=== PATIENT | female | born 1985 | race Caucasian/White ===

== ENCOUNTER 2017-03-07 16:52 | Emergency (ER) | payer SELFPAY ==
[2017-03-07 17:43] LABS: Bilirubin Moderate (Negative); Blood, Urine Negative (Negative); Clarity CLOUDY (Clear); Glucose, Urine (Dipstick) Negative (Negative); Leukocyte Trace (Negative); Nitrite Negative (Negative); Pregnancy Test - Urine (BHCG) Negative (Negative); Pregu Control Background? CLEAR/WHITE (CLR/WHITE); Pregu Control Bar Appear? YES (CONTROL BAR); Protein, Urine (Dipstick) Trace mg/dL (Neg-Trace); Specific Gravity 1.032 (1.002-1.036); Specific Gravity, Urine 1.035 (1.002-1.036); pH, Urine 5.5 (5.0-9.0)
[2017-03-07 17:45] LABS: Bacteria/HPF Rare-Few HPF (None Seen); Hyaline Casts/LPF 7-10 HYALINE CAST LPF (0-3 Hyaline); Pathc Cast-AUWi Flag 1.89 (0-2.49)
[2017-03-07 17:51] LABS: Amphetamine Not Detected (NotDetected); Barbiturates Screen Not Detected (NotDetected); Benzodiazepine Screen Not Detected (NotDetected); Cocaine Metabolite Screen Not Detected (NotDetected); Medtox Control Line Valid? VALID (VALID); Medtox Reader # READER 1; Methadone Not Detected (NotDetected); Methamphetamine Not Detected (NotDetected); Opiate Screen Not Detected (NotDetected); Oxycodone Screen Not Detected (NotDetected); Phencyclidine (PCP) Not Detected (NotDetected); THC/Cannabinoid Screen Detected (NotDetected); Tricyclic Screen Not Detected (NotDetected)
[2017-03-07 18:04] LABS: #Eosinphils 0.1 thou/uL (0.0-0.7); #Lymphocytes 1.8 thou/uL (1.20-3.40); #Monocytes 0.7 thou/uL (0.11-0.59); #Neutrophils 7.4 thou/uL (1.40-6.50); %Basophils 0.3 % (0.0-1.0); %Eosinophils 0.6 % (0.0-10.0); %Lymphocytes 18.2 % (21.0-51.0); %Monocytes 6.6 % (0.0-10.0); %Neutrophils 74.3 % (42.0-75.0); Hemoglobin 14.6 g/dL (12.0-16.0); Mean Corpuscular HGB CONC 33.4 g/dL (32.0-36.0); Mean Corpuscular Hemoglobin 30.6 pg (27.0-31.0); Mean Corpuscular Volume 91.7 fl (81.0-99.0); Mean Platelet Volume 7.7 fL (7.4-10.4); Platelet Count 275 thou/uL (130-400); RBC Distribution Width 11.4 % (11.5-14.5); Red Blood Cell (RBC) Count 4.77 mill/uL (4.20-5.40)
[2017-03-07 18:25] LABS: Acetaminophen Less than 6.0 mcg/mL (10.0-30.0); Alcohol Less than 10 mg/dL (Less than 10); Salicylate Less than 8.0 mg/dL (15.0-30.0)
[2017-03-07 18:35] LABS: ALT (SGPT) 20 U/L (8-55); AST (SGOT) 19 U/L (5-34); Albumin 4.5 g/dL (3.5-5.0); Alkaline Phosphatase 60 U/L (40-150); Anion Gap 16 mmol/L (10-20); BUN (Urea Nitrogen) 14 mg/dL (7.0-18.7); Bilirubin, Total 0.6 mg/dL (0.2-1.2); CK (CPK) 97 U/L (29-168); Calc. Creatinine Clearance 0 mL/min (70-130); Carbon Dioxide 23 mmol/L (22-29); Chloride 103 mmol/L (98-107); Estimated GFR-MDRD Greater than 90; Globulin 3.4 g/dL (2.4-3.5); Glucose 101 mg/dL (70-105); Protein, Total 7.9 g/dL (6.0-8.3); Sodium 138 mmol/L (136-145)
== END 2017-03-07 22:48 ==
LOC: ERS 16:52
DX: F32.9 Major depressive disorder, single episode, unspecified (principal); R45.851 Suicidal ideations; I10 Essential (primary) hypertension; F41.9 Anxiety disorder, unspecified; F17.210 Nicotine dependence, cigarettes, uncomplicated
CPT/HCPCS: 36415; 80053; 80306; 80307; 81003; 81015; 81025; 82550; 84443; 85025; 93005

== ENCOUNTER 2017-03-13 08:16 | Emergency (ER) | payer SELFPAY ==
[2017-03-13 09:12] LABS: #Eosinphils 0.1 thou/uL (0.0-0.7); #Lymphocytes 1.3 thou/uL (1.20-3.40); #Monocytes 0.7 thou/uL (0.11-0.59); #Neutrophils 7.8 thou/uL (1.40-6.50); %Basophils 0.3 % (0.0-1.0); %Eosinophils 0.6 % (0.0-10.0); %Lymphocytes 12.8 % (21.0-51.0); %Monocytes 7.5 % (0.0-10.0); %Neutrophils 78.7 % (42.0-75.0); Hemoglobin 14.5 g/dL (12.0-16.0); Mean Corpuscular HGB CONC 33.5 g/dL (32.0-36.0); Mean Corpuscular Volume 92.7 fl (81.0-99.0); Mean Platelet Volume 7.2 fL (7.4-10.4); Platelet Count 267 thou/uL (130-400); RBC Distribution Width 11.8 % (11.5-14.5); Red Blood Cell (RBC) Count 4.66 mill/uL (4.20-5.40); White Blood Cell (WBC) Count 9.9 thou/uL (4.8-10.8)
--- NOTE | 2017-03-13 09:28 | RAD ---
RIGHT SHOULDER 3 VIEWS: Date: 03/13/17 HISTORY: Pain. COMPARISON: None. FINDINGS: No acute fracture or malalignment. Acromioclavicular joints unremarkable. Right ribs unremarkable. IMPRESSION: No acute fracture or malalignment. POS: GREGORY
[2017-03-13 09:31] LABS: Bilirubin Small (Negative); Blood, Urine Negative (Negative); Clarity CLOUDY (Clear); Glucose, Urine (Dipstick) Negative (Negative); Leukocyte Negative (Negative); Nitrite Negative (Negative); Protein, Urine (Dipstick) Trace mg/dL (Neg-Trace); Specific Gravity, Urine 1.028 (1.002-1.036); Urobilinogen 0.2 mg/dL (0.2-1.0)
[2017-03-13 09:32] LABS: ALT (SGPT) 14 U/L (8-55); AST (SGOT) 10 U/L (5-34); Acetaminophen Less than 6.0 mcg/mL (10.0-30.0); Albumin 4.4 g/dL (3.5-5.0); Alcohol Less than 10 mg/dL (Less than 10); Alkaline Phosphatase 62 U/L (40-150); Anion Gap 12 mmol/L (10-20); BUN (Urea Nitrogen) 11 mg/dL (7.0-18.7); Bilirubin, Total 0.3 mg/dL (0.2-1.2); Calc. Creatinine Clearance 0 mL/min (70-130); Calcium 9.5 mg/dL (7.8-10.44); Carbon Dioxide 25 mmol/L (22-29); Chloride 106 mmol/L (98-107); Estimated GFR-MDRD Greater than 90; Globulin 3.1 g/dL (2.4-3.5); Glucose 92 mg/dL (70-105); Potassium 3.7 mmol/L (3.5-5.1); Protein, Total 7.5 g/dL (6.0-8.3); Salicylate Less than 8.0 mg/dL (15.0-30.0); Sodium 139 mmol/L (136-145)
[2017-03-13 09:33] LABS: Pregnancy Test - Urine (BHCG) Negative (Negative); Pregu Control Background? CLEAR/WHITE (CLR/WHITE); Pregu Control Bar Appear? YES (CONTROL BAR); Specific Gravity 1.028 (1.002-1.036)
[2017-03-13 09:40] LABS: Amphetamine Not Detected (NotDetected); Barbiturates Screen Not Detected (NotDetected); Benzodiazepine Screen Not Detected (NotDetected); Cocaine Metabolite Screen Not Detected (NotDetected); Medtox Control Line Valid? VALID (VALID); Medtox Reader # READER 1; Methadone Not Detected (NotDetected); Methamphetamine Not Detected (NotDetected); Opiate Screen Not Detected (NotDetected); Oxycodone Screen Not Detected (NotDetected); Phencyclidine (PCP) Not Detected (NotDetected); THC/Cannabinoid Screen Not Detected (NotDetected); Tricyclic Screen Not Detected (NotDetected)
== END 2017-03-13 11:03 | disposition home or self-care (01) ==
LOC: ERS 08:16
DX: S46.911A Strain of unspecified muscle, fascia and tendon at shoulder and upper arm level, right arm, initial encounter (principal); F32.9 Major depressive disorder, single episode, unspecified; I10 Essential (primary) hypertension; F17.200 Nicotine dependence, unspecified, uncomplicated; F41.9 Anxiety disorder, unspecified; F43.10 Post-traumatic stress disorder, unspecified; Y04.0XXA Assault by unarmed brawl or fight, initial encounter
CPT/HCPCS: 36415; 80053; 80306; 80307; 81003; 81025; 84443; 85025

== ENCOUNTER 2018-03-31 18:59 | Emergency (ER) | payer SELFPAY | END 2018-03-31 19:37 | disposition home or self-care (01) | LOC: ERS 18:59 | DX: R11.2 Nausea with vomiting, unspecified (principal); R19.7 Diarrhea, unspecified; F41.9 Anxiety disorder, unspecified; F32.9 Major depressive disorder, single episode, unspecified; F43.10 Post-traumatic stress disorder, unspecified; Z79.899 Other long term (current) drug therapy | CPT/HCPCS: 99283 ==

== ENCOUNTER 2018-05-01 14:28 | Emergency (ER) | payer SELFPAY | END 2018-05-01 18:55 | disposition home or self-care (01) | LOC: ERS 14:28 | DX: B34.9 Viral infection, unspecified (principal); F43.10 Post-traumatic stress disorder, unspecified; F41.9 Anxiety disorder, unspecified; F32.9 Major depressive disorder, single episode, unspecified; Z79.899 Other long term (current) drug therapy | CPT/HCPCS: 87081; 87430; 87804; 99283 ==

== ENCOUNTER 2019-01-09 00:54 | Emergency (ER) | payer OTHER, SELFPAY ==
[2019-01-09 01:56] LABS: Calcium Oxalate Crystals 1+ HPF (None Seen); Squamous Epithelial Greater than 50 HPF (0-3); WBC/HPF 21-50 HPF (0-3)
[2019-01-09 02:08] LABS: Bilirubin Negative (Negative); Blood, Urine Negative (Negative); Clarity Turbid (Clear); Glucose, Urine (Dipstick) Normal (Negative); Leukocyte 500 Leu/uL (Negative); Nitrite Negative (Negative); Protein, Urine (Dipstick) 50 mg/dL (Neg-Trace); Urobilinogen Normal mg/dL (Less than 2)
[2019-01-09 02:10] LABS: Bacteria/HPF 1+ HPF (None Seen)
[2019-01-09 02:11] LABS: #Eosinphils 0.2 thou/uL (0.0-0.7); #Lymphocytes 1.9 thou/uL (1.20-3.40); #Monocytes 0.5 thou/uL (0.11-0.59); #Neutrophils 5.6 thou/uL (1.40-6.50); %Basophils 0.2 % (0.0-1.0); %Lymphocytes 23.3 % (21.0-51.0); %Monocytes 6.3 % (0.0-10.0); %Neutrophils 68.1 % (42.0-75.0); Hemoglobin 13.3 g/dL (12.0-16.0); Mean Corpuscular HGB CONC 36.2 g/dL (32.0-36.0); Mean Corpuscular Hemoglobin 32.9 pg (27.0-31.0); Mean Corpuscular Volume 90.8 fL (78.0-98.0); Mean Platelet Volume 7.3 fL (7.4-10.4); Platelet Count 215 thou/uL (130-400); Red Blood Cell (RBC) Count 4.04 mill/uL (4.20-5.40); White Blood Cell (WBC) Count 8.2 thou/uL (4.8-10.8)
--- NOTE | 2019-01-09 09:13 | ULT ---
PRELIMINARY REPORT/[facility]/EMERGENCY AFTER HOURS PROCEDURE PROCEDURE INFORMATION: Exam: US , Limited and US , Transvaginal Exam date and time: 01/09/2019 1:58 AM Age: 33 years old Clinical history: Pain; Other: Cramping, spotting; Gestational age or lmp: 13-14wks; ; Prior surgery; Surgery date: 6+ months; Surgery type: TECHNIQUE: Imaging protocol: Real-time ultrasound of the maternal uterus with image documentation. Transvaginal imaging was used for better evaluation of the cervix. Exam focused on the clinical indication. COMPARISON: No relevant prior studies available. FINDINGS: GESTATION: There is a single, live intrauterine gestation. Presentation: Vertex. heart rate: 157 BPM. Placenta: Marginal previa. Posterior. Cervix: 4.1 cm and closed. Amniotic fluid volume: Qualitatively normal. Biometry: Composite sonographic age: 13 weeks 6 days. Estimated date of confinement: 07.11.2019. IMPRESSION: Single, live intrauterine gestation. Marginal placenta previa. Follow up advised. Cervix 4.1 cm and closed. Thank you for allowing us to participate in the care of your patient. Dictated and Authenticated by: Nataly Frazier MD 01/09/2019 3:26 AM Central Time ([place] & [place]) FINAL REPORT PELVIC ULTRASOUND: 01/09/2019 HISTORY: Cramping. Spotting. female with pain. COMPARISON: None. FINDINGS: I agree with the preliminary report. Cervical length is estimated at 4.2 cm. There is an intrauterine gestation present, the anatomy of wh ich is not well assessed secondary to the gestational age. heart rate is 157 beats per minute. There is a posterior placenta. The distal tip of the placenta is probably within 1 cm of the internal os, although evaluation is slightly limited. Amniotic fluid volume appears qualitatively normal. No evidence for placental abruption. BIOMETRY: BPD: 2.3 cm (13 weeks 6 days) HC: 9.2 cm (14 weeks 1 day) AC: 7.3 cm (13 weeks 6 days) FL: 1.1 cm (13 weeks 3 days) Average age based on ultrasound is 13 weeks 6 days. Estimated date of delivery is 07/11/2019. IMPRESSION: No definite acute findings. Possible low lying, marginal placenta previa, not optimally assessed at t his gestational age. Recommend follow-up pelvic ultrasound for further assessment of the placental tip as well as the feta l anatomy in approximately 6-8 weeks. CODE QA POS: GREGORY
== END 2019-01-09 03:04 | disposition home or self-care (01) ==
LOC: ERS 00:54
DX: O23.41 Unspecified infection of urinary tract in pregnancy, first trimester (principal); Z79.899 Other long term (current) drug therapy; Z3A.13 13 weeks gestation of pregnancy
CPT/HCPCS: 36415; 76856; 81003; 81015; 84702; 85025; 86900; 86901; 87086

== ENCOUNTER 2019-02-11 21:34 | Emergency (ER) | payer OTHER ==
[2019-02-11 22:42] LABS: Bilirubin Negative (Negative); Blood, Urine Negative (Negative); Clarity Turbid (Clear); Glucose, Urine (Dipstick) Normal (Negative); Leukocyte 25 Leu/uL (Negative); Mucous/LPF 2+ LPF (<2+); Nitrite Negative (Negative); Protein, Urine (Dipstick) 30 mg/dL (Neg-Trace); RBC/HPF 0-3 HPF (0-3); Urobilinogen Normal mg/dL (Less than 2)
[2019-02-11 22:49] LABS: Bacteria/HPF 3+ HPF (None Seen); Calcium Oxalate Crystals 1+ HPF (None Seen)
[2019-02-12 00:33] LABS: #Basophils 0.1 thou/uL (0.0-0.2); #Eosinphils 0.2 thou/uL (0.0-0.7); #Lymphocytes 1.9 thou/uL (1.20-3.40); #Monocytes 0.6 thou/uL (0.11-0.59); #Neutrophils 6.5 thou/uL (1.40-6.50); %Basophils 0.6 % (0.0-1.0); %Eosinophils 2.1 % (0.0-10.0); %Lymphocytes 20.6 % (21.0-51.0); %Neutrophils 70.8 % (42.0-75.0); Hemoglobin 13.2 g/dL (12.0-16.0); Mean Corpuscular HGB CONC 34.9 g/dL (32.0-36.0); Mean Corpuscular Hemoglobin 31.3 pg (27.0-31.0); Mean Corpuscular Volume 89.9 fL (78.0-98.0); Platelet Count 194 thou/uL (130-400); RBC Distribution Width 11.4 % (11.5-14.5); White Blood Cell (WBC) Count 9.2 thou/uL (4.8-10.8)
[2019-02-12 00:54] LABS: ALT (SGPT) 19 U/L (8-55); AST (SGOT) 17 U/L (5-34); Albumin 3.4 g/dL (3.5-5.0); Alkaline Phosphatase 48 U/L (40-110); Anion Gap 10 mmol/L (10-20); BUN (Urea Nitrogen) 8 mg/dL (7.0-18.7); Bilirubin, Total 0.4 mg/dL (0.2-1.2); Calc. Creatinine Clearance 0 mL/min (70-130); Calcium 8.8 mg/dL (7.8-10.44); Carbon Dioxide 24 mmol/L (22-29); Chloride 105 mmol/L (98-107); Estimated GFR-MDRD Greater than 90; Globulin 2.9 g/dL (2.4-3.5); Glucose 98 mg/dL (70-105); Potassium 3.4 mmol/L (3.5-5.1); Protein, Total 6.3 g/dL (6.0-8.3); Sodium 136 mmol/L (136-145)
== END 2019-02-12 01:06 | disposition home or self-care (01) ==
LOC: ERS 21:34
DX: O99.89 Other specified diseases and conditions complicating pregnancy, childbirth and the puerperium (principal); R42 Dizziness and giddiness; R82.71 Bacteriuria; R53.83 Other fatigue; Z3A.17 17 weeks gestation of pregnancy
CPT/HCPCS: 36415; 36416; 80053; 81003; 81015; 85025; 93005

== ENCOUNTER 2019-07-05 11:53 | Inpatient (IN) | payer OTHER ==
[2019-07-05 12:07] VITALS: BMI 38.2
--- NOTE | 2019-07-05 12:23 | PDOC.FPRHP ---
- History of Present Illness Chief Complaint: Bleeding, Cx History of Present Illness: Pt is a 33 yo @ 38.3 wks by LMP c/w 9 US, MICHELLE 07/16/19, who presents for vaginal bleeding, possible labor. Pt initially made a phone call to [facility] who recommended she be seen on L&D. She was scheduled for a repeat with her PCP, Dr. Hunt, next week. - Allergies/Adverse Reactions Allergies Allergy/AdvReac Type Severity Reaction Status Date / Time No Known Allergies Allergy Verified 07/05/19 12:07 - Home Medications Medication Instructions Recorded Confirmed Type No Known 07/05/19 07/05/19 History - History PMHx: PSHx: FHx: Social: - Vital signs BP: [] HR: [] RR: [] Tmax: [] Pox: []% on [] Wt: [] FMR H&P: Upper Level - Plan Date/Time: 07/05/19 1223 I, [], have evaluated this patient and agree with findings/plan as outlined by transportation logistics internship resident. Pertinent changes/additions are listed here.
--- NOTE | 2019-07-05 12:36 | PDOC.FPROB ---
FMR OB H&P: HPI - History of Present Illness Chief Complaint: Bleeding Indentification: at 38.3 wks by LMP c/w 9 wk sono History of Present Illness: Pt is a 33 yo @ 38.3 wks by LMP c/w 9 US, MICHELLE 07/16/19, who presents for vaginal bleeding, possible labor. Pt initially made a phone call to [facility] who recommended she be seen on L&D. She passed clots this morning x 1 time. She experienced bloody discharge as well. Pressure has been consistent since 0600 this am. She denies LOF, CHAVARRIA, vision changes, N/V, LE swelling, chest pain, sob. She was scheduled for a repeat with her PCP, Dr. Hunt, next week. 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 - OB History OB History: Hx of for failure to progress; 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: HPV 18 positive - Surgical History Sx History: x 1 - Social History Social History: prior - Family History Family History: htn, hx of depression, Hep C FMR OB H&P: Medications - Current Home Medications: Medication Instructions Recorded Confirmed Type No Known 07/05/19 07/05/19 History Allergies/Adverse Reactions: Allergies Allergy/AdvReac Type Severity Reaction Status Date / Time No Known Allergies Allergy Verified 07/05/19 12:07 FMR OB H&P: ROS - Review of Systems General: denies: fever/chills, weight/appetite/sleep changes ENT: denies: rhinorrhea, sinus pain/pressure Cardiovascular: denies: chest pain, palpitation, edema Respiratory: denies: cough, congestion, shortness of breath Gastrointestinal: denies: abdominal pain, diarrhea, constipation Genitourinary (Female): denies: incontinence, dysuria, hematuria Musculoskeletal: denies: pain, stiffness Neurologic: denies: numbness, seizures Integumentary: denies: rash, lesions Hematologic/Lymphatic: denies: prolonged or excessive bleeding Psychological: denies: depression, anxiety FMR OB H&P: Vital Signs - Maternal Vital signs: BP and pulse WNL - Heart Tones Baseline: 140 Variability: moderate Acceleration: present Deceleration: absent Category: category 1 [place] contractions every: irritability FMR OB H&P: Physical Exam - Physical Exam General: NAD, awake, alert and oriented HEENT: PERRLA, EOMI Neck: FROM, no JVD Heart: RRR, normal S1/S2 General: CTAB, no respiratory distress, no wheezing Abdomen: soft, gravid, non-tender, bowel sound present Musculoskeletal: pulses present, FROM in all four extremities Neurological: cranial nerves II through XII intact, sensation to pain,touch and proprioception grossly normal Skin: no rash, capillary refill <2 seconds Lymphatic: no purpura, no petechia Psychiatric: intact recent and remote memory, good judgement and insight FMR OB H&P: A/P - Problem List (1) Intrauterine Current Visit: Yes Status: Acute Code(s): Z34.90 - ENCNTR FOR SUPRVSN OF NORMAL , UNSP, UNSP TRIMESTER (2) Third trimester bleeding Current Visit: Yes Status: Acute Code(s): O46.93 - ANTEPARTUM HEMORRHAGE, UNSPECIFIED, THIRD TRIMESTER (3) MDD (major depressive disorder) Current Visit: Yes Status: Acute Code(s): F32.9 - MAJOR DEPRESSIVE DISORDER , SINGLE EPISODE, UNSPECIFIED (4) HPV test positive Current Visit: Yes Status: Acute Code(s): [id number] - Disposition: Pt is a 33 yo at 38.3 wks who presents in latent labor with palpable contractions: # IUP s/p LTCS Pt dilated to 3 cm. Scheduled for rLTCS next week. Palpable contractions. Will take for at this time. 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 Smallwood and Dr. Cervantes who agree with the above documentation and plan. Addendum - Attending - Attending Attestation Date/Time: 07/05/19 3474 I personally evaluated the patient and discussed the management with Dr. Beard I agree with the History, Examination, Assessment and Plan documented above with any addition or exceptions noted below- 33 yo female with c/o cramping, abdominal pain since last night; intermittent. (+) FM Afebrile VSS. Category 1 FHTs. [place]- ctx q3-4 min. SVE- 3/70/-3. A/P- 1) IUP@38+ weeks in early labor- Admit to L&D and will proceed with repeat C/S.
[2019-07-05] MEDS ORDERED: Ondansetron PF 4 MG/2 ML Vial IVP PRN ×3 (13:21→17:43)
[2019-07-05] MEDS ORDERED: Promethazine HCl 25 MG/ML VIAL IM PRN ×2 (13:21→14:46)
[2019-07-05] MEDS ORDERED: Docusate 100 MG CAP PO PRN (13:21)
[2019-07-05] MEDS ORDERED: hydrALAZINE 20 MG/ML VIAL SLOW IVP PRN ×2 (13:21→17:43)
[2019-07-05] MEDS ORDERED: CEFAZOLIN 2 GM in Premix Bag 1 BAG IVPB SCH (13:30)
[2019-07-05] MEDS ORDERED: Bicitra 30 ML UDCUP PO SCH (13:30)
[2019-07-05] MEDS ORDERED: MORPHINE 5 MG/10 ML PF VIAL ONE (13:50)
[2019-07-05] MEDS ORDERED: Oxytocin 10 UNITS/ML VIAL ONE ×2 (13:50→14:51)
[2019-07-05] MEDS ORDERED: PHENYLEPHRINE-NS 100 MCG/ML 10 ML SYRINGE ONE (13:50)
[2019-07-05] MEDS ORDERED: Dexamethasone 4 mg/ml Vial ONE (13:50)
[2019-07-05] MEDS ORDERED: Ondansetron PF 4 MG/2 ML Vial ONE (13:50)
[2019-07-05 13:57] LABS: Hemoglobin 13.9 g/dL (12.0-16.0); Mean Corpuscular HGB CONC 33.1 g/dL (32.0-36.0); Mean Corpuscular Hemoglobin 31.2 pg (27.0-31.0); Mean Corpuscular Volume 94.1 fL (78.0-98.0); Mean Platelet Volume 8.5 fL (7.4-10.4); Platelet Count 208 thou/uL (130-400); RBC Distribution Width 12.8 % (11.5-14.5); Red Blood Cell (RBC) Count 4.46 mill/uL (4.20-5.40); White Blood Cell (WBC) Count 13.7 thou/uL (4.8-10.8)
[2019-07-05] MEDS ORDERED: EPHEDRINE 25 MG/5 ML SYRINGE ONE (14:21)
[2019-07-05] MEDS ORDERED: Ondansetron HCl/PF 4 MG/2 ML Vial IVP PRN (14:46)
[2019-07-05] MEDS ORDERED: Naloxone HCl 0.4 mg/ml Vial IV PRN (14:46)
[2019-07-05] MEDS ORDERED: Naloxone HCl 0.4 mg/ml Vial IVP PRN ×2 (14:46)
[2019-07-05] MEDS ORDERED: HYDROmorphone 2 MG/ML VIAL SLOW IVP PRN (14:46)
[2019-07-05] MEDS ORDERED: diphenhydrAMINE 50 MG/ML VIAL IVP PRN (14:46)
[2019-07-05] MEDS ORDERED: Meperidine HCl/PF 25 MG/ML VIAL SLOW IVP PRN (14:46)
[2019-07-05] MEDS ORDERED: Promethazine HCl 25 MG SUPP PR PRN (14:46)
[2019-07-05] MEDS ORDERED: L&D-Morphine 4 MG/ML VIAL SLOW IVP PRN (14:46)
[2019-07-05] MEDS ORDERED: Communication Order-Pharmacy FS SCH (15:00)
[2019-07-05] MEDS ORDERED: Ketorolac Tromethamine 30 MG/ML VIAL IVP SCH (15:00)
--- NOTE | 2019-07-05 15:54 | PDOC.OPDEL ---
OB Operative/Delivery Note Delivery Dr/Surgeon: Aly/Billy Assist: Kisha Pre-Delivery Diagnosis: other (Latent Labor with contractions) Procedure/Post Delivery Dx: repeat low transverse CS Anesthesia: spinal - Findings A Sex: male Weight: 3.444 kg - 1 min: 8 - 5 min: 9 - Additional Findings/Plan Placenta delivered: manual removal Repaired Obstetrical Laceration: none findings: low transverse hysterotomy without extension, normal uterus Estimated blood loss: QBL 1130 ml Compilations/Other Findings: Date of Procedure: 07/05/19 Resident Surgeon: Aly/Kisha Attending Surgeon: Billy Procedure: Repeat low transverse caesarean section Preoperative Diagnosis: 1)Term intrauterine , in labor 2)Previous x 1 3)MDD Postoperative Diagnosis: 1-3)same as above plus any other findings during surgery Anesthesia: spinal Indications: The patient is a 33 year old female at 38.3 weeks gestation who presented in labor for a repeat . Procedure in Detail: After risks, benefits, and alternatives were explained to the patient, she gave informed consent. Pre-operative antibiotics included Cefazolin 2 gram IV. The patient was taken to the operating room and spinal anesthesia was initiated. She was placed in the supine position with a left tilt and prepped and draped in usual sterile fashion. A Pfannenstiel incision was made with a scalpel and carried down to the level of the fascia which was sharply nicked. The fascial cut was extended bilaterally with Mak scissors. The inferior and superior edges of the cut fascial edges were elevated with Abel clamps and the underlying rectus muscles were sharply and bluntly dissected free. The recti were divided digitally and retracted manually. The peritoneum was elevated with hemostats initially cut with Metzenbaum scissors then entered bluntly and retracted manually. No bladder flap was made but bladder identified. [place] O Retractor was placed. A low transverse score was made with the scalpel and the uterus was entered in the midline with the scalpel. Clear fluid was seen. The hysterotomy was extended manually. The was noted to be vertex. Initial delivery attempt with fundal pressure was unsuccessful thus vacuum assist device applied with pop-off x 2. Infant was successfully removed on third attempt after extension of R fascia with scissors. Mouth and nares were bulb suctioned. Cord clamped and cut and grossly normal male infant was handed to waiting nurse. Cord blood was obtained. Placenta was manually extracted, found to be intact with 3 vessel cord and discarded. The uterus was visualized with the replacement of [place] O Retractor. The uterus was closed with a running locking 0-Monocryl followed by a running non-locking 0-Monocryl imbricating suture. Following this hemostasis was noted. The abdomen was irrigated with saline and suctioned free of clots. The fascia was closed with a running non-locking 0-Vicryl suture. The subcutaneous tissue was irrigated and there were no bleeders then closed with 2- 0 Plain-Gut interrupted suture. The skin was approximated with running subcuticular 3-0 Monocryl suture and a dermabond applied. All counts were correct. The patient tolerated the procedure well and was taken to the recovery room in stable condition. Quantitative Blood Loss: 1130 ml Complications: None Specimens: cord blood sent to lab Findings: Grossly normal male infant with Apgars of 8 and 9. Grossly normal placenta with 3 vessel cord discarded. Drains: Anna to gravity draining clear urine Post delivery plan: routine recovery Addendum - Attending - Attending Attestation Date/Time: 07/05/19 6418 I was present, supervised and assisted with a repeat LCT C/S for this 33 yo . Viable male infant delivered with vacuum assistance on 3rd placement of cup after 2 pop-offs. Total vacuum time 3 minutes. Apgars 8/9. No extension of uterine incision noted. Closure as per residents documentation. QBL 1130 mL Residents: Eliza.
[2019-07-05] MEDS ORDERED: diphenhydrAMINE 50 MG/ML VIAL ONE (16:11)
[2019-07-05] MEDS ORDERED: Ketorolac Tromethamine 30 MG/ML VIAL ONE (17:19)
[2019-07-05] MEDS: Ketorolac Tromethamine 30 MG/ML VIAL IVP PRN ×2 (17:22→22:40)
[2019-07-05] MEDS ORDERED: Simethicone Chewable 80 MG TAB PO PRN (17:43)
[2019-07-05] MEDS ORDERED: Acetaminophen 325 MG TAB PO PRN (17:43)
[2019-07-05] MEDS ORDERED: Lanolin Ointment 7 GM TUBE TOP PRN (17:43)
[2019-07-05] MEDS ORDERED: Bisacodyl 10 MG SUPP PR PRN (17:43)
[2019-07-05] MEDS ORDERED: diphenhydrAMINE 25 MG CAP PO PRN (17:43)
[2019-07-05] MEDS ORDERED: NS / Oxytocin 40 units/1000ml 1,000 ML IV SCH (17:43)
[2019-07-05] MEDS ORDERED: Sodium Chloride 0.9% 10 ML ONE (20:53)
[2019-07-06] MEDS ORDERED: HYDROcodone/Acetaminophen 5/325 mg Tablet PO PRN (03:00)
[2019-07-06] MEDS: Ketorolac Tromethamine 30 MG/ML VIAL IVP PRN (04:56)
[2019-07-06] MEDS: Docusate Calcium (SURFAK) 240 MG CAP PO SCH ×3 (04:57→22:57)
--- NOTE | 2019-07-06 06:26 | PDOC.OBPPN ---
FMR OB PN: Subj - Interval History Hospital Day: 2 Day: Post- Day 1 Pt is a doing well today. No complaints. Tolerating a diet. Passing flatus. Anna catheter in place. BP's WNL. Baby is latching well. She is wondering about a breast pump. Chief Complaint: rTLCS FMR OB PN: Obj - Maternal Vital signs: BP: 119/58 Wt: 101.15 kg - Urine output I&O: 07/04/19 07/05/19 07/06/19 06:59 06:59 06:59 Intake Total 2000 Output Total 3005 Balance -1005 FMR OB PN: Exam - Physical Exam General: NAD, awake, alert and oriented HEENT: PERRLA, EOMI Neck: FROM, no JVD Heart: RRR, normal S1/S2 General: CTAB, no respiratory distress, no wheezing Abdomen: soft, bowel sound present Deviation from normal: mild tenderness Musculoskeletal: pulses present, FROM in all four extremities Neurological: cranial nerves II through XII intact, sensation to pain,touch and proprioception grossly normal Skin: capillary refill <2 seconds : incision healing well Lymphatic: no purpura, no petechia Psychiatric: intact recent and remote memory, good judgement and insight FMR OB PN: Data - Labs Lab results: Laboratory Results - last 24 hr 07/05/19 07/05/19 13:45 13:45 WBC 13.7 H RBC 4.46 Hgb 13.9 Hct 42.0 MCV 94.1 MCH 31.2 H MCHC 33.1 RDW 12.8 Plt Count 208 MPV 8.5 Blood Type A POSITIVE Antibody Screen NEGATIVE FMR OB PN: A/P - Problem List (1) Intrauterine Current Visit: Yes Status: Acute Code(s): Z34.90 - ENCNTR FOR SUPRVSN OF NORMAL , UNSP, UNSP TRIMESTER (2) Third trimester bleeding Current Visit: Yes Status: Acute Code(s): O46.93 - ANTEPARTUM HEMORRHAGE, UNSPECIFIED, THIRD TRIMESTER (3) MDD (major depressive disorder) Current Visit: Yes Status: Acute Code(s): F32.9 - MAJOR DEPRESSIVE DISORDER , SINGLE EPISODE, UNSPECIFIED (4) HPV test positive Current Visit: Yes Status: Acute Code(s): [id number] - Disposition: Pt is a 33 yo at 38.3 wks who presents in latent labor with palpable contractions: # rLTCS s/p delivery Continue routine care. Pain well controlled. Pt is passing flatus w/o BM. She is w/ supplementation. Would like a breast pump. 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 Addendum - Attending - Attending Attestation Date/Time: 07/06/19 1777 I personally evaluated the patient and discussed the management with Dr. Beard I agree with the History, Examination, Assessment and Plan documented above with any addition or exceptions noted below - Patient without complaints. Ambulating without difficulty. Tolerating diet. Afebrile VSS. A/P: 1) POD#1 s/p repeat LCT C/S - doing well. H/H stable. Continue routine care.
[2019-07-06 06:52] LABS: Hemoglobin 11.7 g/dL (12.0-16.0); Mean Corpuscular HGB CONC 33.3 g/dL (32.0-36.0); Mean Corpuscular Hemoglobin 31.3 pg (27.0-31.0); Mean Corpuscular Volume 94.1 fL (78.0-98.0); Mean Platelet Volume 8.1 fL (7.4-10.4); Platelet Count 200 thou/uL (130-400); RBC Distribution Width 12.6 % (11.5-14.5); Red Blood Cell (RBC) Count 3.75 mill/uL (4.20-5.40); White Blood Cell (WBC) Count 14.8 thou/uL (4.8-10.8)
[2019-07-06] MEDS: Prenatal Vitamin 1 TAB PO SCH (09:33)
[2019-07-06] MEDS: HYDROcodone/Acetaminophen 5/325 mg Tablet PO PRN ×2 (09:33→20:00)
[2019-07-06] MEDS: Ibuprofen 800 MG TAB PO SCH (22:58)
[2019-07-07] MEDS: Ibuprofen 800 MG TAB PO SCH ×3 (05:57→21:58)
[2019-07-07] MEDS: HYDROcodone/Acetaminophen 5/325 mg Tablet PO PRN ×2 (06:20→20:22)
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
[2019-07-07] MEDS: Prenatal Vitamin 1 TAB PO SCH (09:32)
[2019-07-07] MEDS: Docusate Calcium (SURFAK) 240 MG CAP PO SCH ×2 (09:32→21:57)
[2019-07-08] MEDS: Ibuprofen 800 MG TAB PO SCH (05:05)
[2019-07-08] MEDS: HYDROcodone/Acetaminophen 5/325 mg Tablet PO PRN (05:09)
--- NOTE | 2019-07-08 07:19 | PDOC.PP ---
Post Progress Note Post Day #: 3 Subjective: Pt is tearful today after receiving news CPS will take baby. She remains in the nursery with baby. She denies uncontrolled pain, tenderness. She is tolerating a diet, had a BM. Vital Signs (12 hours) Temp Pulse Resp BP Pulse Ox 07/07/19 20:00 98.6 F 99 12 121/59 L 98 Weight Weight 101.151 kg - Physical Examination General: NAD Cardiovascular: no m/r/g, RRR Respiratory: clear to auscultation bilaterally, non-labored breathing Abdominal: + bowel sounds Neurological: no gross focal deficits Psychiatric: A&Ox3, normal affect Result Diagrams: 07/06/19 06:37 Additional Labs: Post Labs Blood Type A POSITIVE 07/05/19 13:45 (1) Intrauterine Code(s): Z34.90 - ENCNTR FOR SUPRVSN OF NORMAL , UNSP, UNSP TRIMESTER Status: Acute (2) Third trimester bleeding Code(s): O46.93 - ANTEPARTUM HEMORRHAGE, UNSPECIFIED, THIRD TRIMESTER Status: Acute (3) MDD (major depressive disorder) Code(s): F32.9 - MAJOR DEPRESSIVE DISORDER, SINGLE EPISODE, UNSPECIFIED Status : Acute (4) HPV test positive Code(s): [id number] - Status: Acute - Assessment/Plan Pt is a 33 yo delivered at 38.3 wks who presented in latent labor with palpable contractions: # rLTCS s/p delivery Continue routine care. Pain well controlled. Pt is passing flatus w/o BM. She is w/ supplementation. Continue with breast pump. 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 Records have been sent from [facility]. She seems fit to take care of her child. She does not show signs of psychosis or depression. Will follow up this afternoon. Dispo: d/c patient today Addendum - Attending - Attending Attestation Date/Time: 07/08/19 1025 I personally evaluated the patient and discussed the management with Dr. Beard I agree with the History, Examination, Assessment and Plan documented above with any addition or exceptions noted below- Patient without complaints. Pain controlled. Upset and sad regarding CPS decision but willing to go through the required elements to get custody. Afebrile VSS. A/P: 1) POD#3 s/p repeat C/ section - doing well; Plan to d/c home later today.
[2019-07-08 08:23] VITALS: BP 128/64; TEMP 98.5
[2019-07-08] MEDS: Docusate Calcium (SURFAK) 240 MG CAP PO SCH (09:13)
[2019-07-08] MEDS: Prenatal Vitamin 1 TAB PO SCH (09:13)
== END 2019-07-08 12:35 | disposition home or self-care (01) | DRG 787 ==
LOC: L&D/OP 11:53 → L&D 12:34 → UNDOADMIN 15:33 → L&D 18:02 → 3SW 18:02
PROVIDERS: ADMIT Family Medicine; ATTEND Family Medicine
PROC: 10D00Z1 Extraction of Products of Conception, Low, Open Approach (ICD-10-PCS; principal; 2019-07-05)
DX: O34.211 Maternal care for low transverse scar from previous cesarean delivery (principal); O98.32 Other infections with a predominantly sexual mode of transmission complicating childbirth; Z3A.38 38 weeks gestation of pregnancy; Z37.0 Single live birth; O72.1 Other immediate postpartum hemorrhage; O99.344 Other mental disorders complicating childbirth; F32.9 Major depressive disorder, single episode, unspecified; O99.824 Streptococcus B carrier state complicating childbirth; A63.0 Anogenital (venereal) warts
CPT/HCPCS: 36415; 51702; 85027; 86850; 86900; 86901; 99285; J0690; J1100; J1200; J1885; J2274; J2405; J2590; Q0163

== ENCOUNTER 2019-12-25 15:54 | Emergency (ER) | payer OTHER ==
[2019-12-26] LABS: SARS-CoV-2 MS2 Negative; SARS-CoV-2 N Gene Positive; SARS-CoV-2 S Gene Positive; SARS-CoV-2 by NAA DETECTED (NotDetected); SARS-CoV-2 orf1ab Positive
== END 2019-12-25 16:22 | disposition home or self-care (01) ==
LOC: ERS 15:54
DX: U07.1 COVID-19 (principal)
CPT/HCPCS: 87635; 99283; U0003

== ENCOUNTER 2022-03-04 13:27 | Emergency (ER) | payer OTHER | END 2022-03-04 14:31 | disposition home or self-care (01) | LOC: ERS 13:27 | DX: U07.1 COVID-19 (principal) | CPT/HCPCS: 99282 ==

== ENCOUNTER 2022-06-17 06:13 | Observation (INO) | payer OTHER ==
[2022-06-17 06:49] LABS: #Eosinphils 0.2 thou/uL (0.0-0.7); #Lymphocytes 2.9 thou/uL (1.20-3.40); #Monocytes 0.6 thou/uL (0.11-0.59); #Neutrophils 5.8 thou/uL (1.40-6.50); %Basophils 0.5 % (0.0-1.0); %Eosinophils 2.1 % (0.0-10.0); %Lymphocytes 30.6 % (21.0-51.0); %Monocytes 6.2 % (0.0-10.0); %Neutrophils 60.6 % (42.0-75.0); Hemoglobin 12.8 g/dL (12.0-16.0); Mean Corpuscular HGB CONC 35.5 g/dL (32.0-36.0); Mean Corpuscular Hemoglobin 31.6 pg (27.0-31.0); Mean Platelet Volume 7.3 fL (7.4-10.4); Platelet Count 232 10x3/uL (130-400); RBC Distribution Width 11.8 % (11.5-14.5); Red Blood Cell (RBC) Count 4.05 mill/uL (4.20-5.40); White Blood Cell (WBC) Count 9.6 10x3/uL (4.8-10.8)
[2022-06-17 07:00] LABS: INR-International Normal Ratio 0.9; Prothrombin Time 12.3 sec (12.0-14.7)
[2022-06-17 07:01] LABS: PTT 24.3 sec (22.9-36.1)
[2022-06-17 07:03] LABS: Acetaminophen Less than 10.0 mcg/mL (10.0-30.0); Alcohol Less than 10 mg/dL (Less than 10); CK (CPK) 74 U/L (29-168); Salicylate Less than 8.0 mg/dL (15.0-30.0)
[2022-06-17 07:05] LABS: ALT (SGPT) 14 U/L (8-55); AST (SGOT) 17 U/L (5-34); Albumin 3.6 g/dL (3.5-5.0); Alkaline Phosphatase 49 U/L (40-110); Anion Gap 15 mmol/L (10-20); BUN (Urea Nitrogen) 11 mg/dL (7.0-18.7); Bilirubin, Total 0.2 mg/dL (0.2-1.2); Calc. Creatinine Clearance 0 mL/min (70-130); Calcium 9.7 mg/dL (7.8-10.44); Carbon Dioxide 24 mmol/L (22-29); Chloride 104 mmol/L (98-107); Estimated GFR 117; Glucose 101 mg/dL (70-105); Protein, Total 6.6 g/dL (6.0-8.3); Sodium 139 mmol/L (136-145)
[2022-06-17] MEDS ORDERED: Aspirin Chewable 81 MG TAB ONE (07:12)
[2022-06-17 07:45] LABS: Bilirubin Negative (Negative); Blood, Urine Negative (Negative); Clarity Clear (Clear); Glucose, Urine (Dipstick) Normal (Negative); Ketone, Urine Negative (Negative); Leukocyte Negative Leu/uL (Negative); Nitrite Negative (Negative); Protein, Urine (Dipstick) Negative (Neg-Trace); Urobilinogen Normal mg/dL (Less than 2); pH, Urine 5.5 (5.0-9.0)
[2022-06-17 07:52] LABS: Amphetamine Not Detected (NotDetected); Barbiturates Screen Not Detected (NotDetected); Benzodiazepine Screen Not Detected (NotDetected); Cocaine Metabolite Screen Not Detected (NotDetected); Methadone Not Detected (NotDetected); Methamphetamine Not Detected (NotDetected); Opiate Screen Not Detected (NotDetected); Oxycodone Screen Not Detected (NotDetected); Phencyclidine (PCP) Not Detected (NotDetected); THC/Cannabinoid Screen Not Detected (NotDetected); Tricyclic Screen Not Detected (NotDetected)
[2022-06-17 07:54] LABS: Specific Gravity, Urine Greater than 1.060 (1.002-1.036)
[2022-06-17] MEDS ORDERED: Iopamidol 370 76% 100 ML VIAL ONE (10:01)
[2022-06-17 10:03] LABS: Troponin I Less than 0.010 ng/mL (< 0.028)
[2022-06-17 13:53] LABS: Troponin I Less than 0.010 ng/mL (< 0.028)
[2022-06-17] MEDS ORDERED: Ondansetron ODT 4 MG TAB SL PRN (14:30)
[2022-06-17] MEDS ORDERED: Ondansetron PF 4 MG/2 ML Vial IVP PRN (14:30)
[2022-06-17 14:31] VITALS: BMI 38.3
[2022-06-17] MEDS ORDERED: Sodium Chloride 0.9% 1,000 ML IV SCH (16:15)
[2022-06-18] MEDS: Acetaminophen 500 MG TAB PO PRN ×3 (00:35→15:07)
[2022-06-18 05:40] LABS: #Eosinphils 0.3 thou/uL (0.0-0.7); #Lymphocytes 2.5 thou/uL (1.20-3.40); #Monocytes 0.5 thou/uL (0.11-0.59); #Neutrophils 5.3 thou/uL (1.40-6.50); %Basophils 0.3 % (0.0-1.0); %Monocytes 5.7 % (0.0-10.0); Hemoglobin 11.5 g/dL (12.0-16.0); Mean Corpuscular HGB CONC 32.6 g/dL (32.0-36.0); Mean Corpuscular Hemoglobin 29.3 pg (27.0-31.0); Mean Corpuscular Volume 89.9 fl (78.0-98.0); Mean Platelet Volume 7.3 fL (7.4-10.4); Platelet Count 204 10x3/uL (130-400); RBC Distribution Width 11.8 % (11.5-14.5); Red Blood Cell (RBC) Count 3.92 mill/uL (4.20-5.40); White Blood Cell (WBC) Count 8.6 10x3/uL (4.8-10.8)
[2022-06-18 06:02] LABS: Anion Gap 12 mmol/L (10-20); BUN (Urea Nitrogen) 9 mg/dL (7.0-18.7); Calc. Creatinine Clearance 237 mL/min (70-130); Calcium 8.5 mg/dL (7.8-10.44); Carbon Dioxide 20 mmol/L (22-29); Chloride 109 mmol/L (98-107); Estimated GFR 123; Glucose 93 mg/dL (70-105); Potassium 3.5 mmol/L (3.5-5.1); Sodium 137 mmol/L (136-145)
[2022-06-18] MEDS: Aspirin 81 mg Enteric Coated Tablet PO SCH (09:01)
[2022-06-18] MEDS: Labetalol HCl 100 MG TAB PO SCH (09:02)
[2022-06-18] MEDS: Prenatal Vitamin 1 TAB PO SCH (09:02)
[2022-06-18 18:54] LABS: Hemoglobin A1c 4.9 % (4.0-6.0)
[2022-06-18 19:07] LABS: Cardiac Risk 3.9 (Less than 4.5)
[2022-06-19] MEDS: Acetaminophen 500 MG TAB PO PRN (04:16)
[2022-06-19 08:42] LABS: #Eosinphils 0.2 thou/uL (0.0-0.7); #Lymphocytes 2.4 thou/uL (1.20-3.40); #Monocytes 0.4 thou/uL (0.11-0.59); #Neutrophils 5.7 thou/uL (1.40-6.50); %Basophils 0.3 % (0.0-1.0); %Eosinophils 1.9 % (0.0-10.0); %Lymphocytes 27.4 % (21.0-51.0); %Monocytes 4.9 % (0.0-10.0); %Neutrophils 65.4 % (42.0-75.0); Hemoglobin 12.7 g/dL (12.0-16.0); Mean Corpuscular HGB CONC 34.9 g/dL (32.0-36.0); Mean Corpuscular Hemoglobin 31.2 pg (27.0-31.0); Mean Corpuscular Volume 89.6 fl (78.0-98.0); Mean Platelet Volume 7.3 fL (7.4-10.4); Platelet Count 213 10x3/uL (130-400); RBC Distribution Width 11.7 % (11.5-14.5); Red Blood Cell (RBC) Count 4.08 mill/uL (4.20-5.40); White Blood Cell (WBC) Count 8.7 10x3/uL (4.8-10.8)
[2022-06-19 08:59] LABS: Chloride 107 mmol/L (98-107); Potassium 3.7 mmol/L (3.5-5.1); Sodium 135 mmol/L (136-145)
[2022-06-19 09:00] LABS: Calcium 8.5 mg/dL (7.8-10.44); Glucose 90 mg/dL (70-105)
[2022-06-19 09:01] LABS: Anion Gap 11 mmol/L (10-20); Carbon Dioxide 21 mmol/L (22-29)
[2022-06-19 09:03] LABS: Calc. Creatinine Clearance 224 mL/min (70-130); Estimated GFR 121
[2022-06-19 09:04] LABS: BUN (Urea Nitrogen) 8 mg/dL (7.0-18.7)
[2022-06-19] MEDS: Aspirin 81 mg Enteric Coated Tablet PO SCH (09:30)
[2022-06-19] MEDS: Prenatal Vitamin 1 TAB PO SCH (09:30)
[2022-06-19] MEDS: Labetalol HCl 100 MG TAB PO SCH (09:30)
[2022-06-19 11:21] VITALS: BP 135/63; TEMP 98.5
== END 2022-06-19 13:19 | disposition home or self-care (01) ==
LOC: SUATTDRO 06:13 → ERS 06:13 → ERHOLD 08:53 → NEURO 14:03
PROVIDERS: ADMIT Hospitalist; ATTEND Hospitalist
DX: O99.891 Other specified diseases and conditions complicating pregnancy (principal); M79.602 Pain in left arm; R20.2 Paresthesia of skin; M25.78 Osteophyte, vertebrae; O11.1 Pre-existing hypertension with pre-eclampsia, first trimester; O99.281 Endocrine, nutritional and metabolic diseases complicating pregnancy, first trimester; E86.0 Dehydration; O09.521 Supervision of elderly multigravida, first trimester; Z3A.13 13 weeks gestation of pregnancy; Z79.899 Other long term (current) drug therapy; Z98.891 History of uterine scar from previous surgery
CPT/HCPCS: 36415; 36416; 70450; 70496; 70498; 70551; 71045; 76801; 80048; 80053; 80061; 80306; 80307; 81003; 82550; 83036; 84443; 84484; 85025; 85610; 85730; 87040; 87086; 93005; 93306; G0378; J7050; Q9967

== ENCOUNTER 2022-11-01 22:34 | Emergency (ER) | payer OTHER ==
[2022-11-01 23:45] LABS: #Monocytes 0.7 thou/uL (0.11-0.59); #Neutrophils 7.2 thou/uL (1.40-6.50); %Basophils 0.2 % (0.0-1.0); %Eosinophils 0.4 % (0.0-10.0); %Monocytes 7.7 % (0.0-10.0); %Neutrophils 80.3 % (42.0-75.0); Hematocrit 35.5 % (36.0-47.0); Hemoglobin 11.9 g/dL (12.0-16.0); Mean Corpuscular HGB CONC 33.5 g/dL (32.0-36.0); Mean Corpuscular Hemoglobin 30.7 pg (27.0-31.0); Mean Corpuscular Volume 91.5 fl (78.0-98.0); Platelet Count 196 10x3/uL (130-400); RBC Distribution Width 13.9 % (11.5-14.5); Red Blood Cell (RBC) Count 3.88 mill/uL (4.20-5.40); White Blood Cell (WBC) Count 8.9 10x3/uL (4.8-10.8)
[2022-11-02 00:08] LABS: ALT (SGPT) 14 U/L (8-55); AST (SGOT) 17 U/L (5-34); Albumin 3.3 g/dL (3.5-5.0); Alkaline Phosphatase 83 U/L (40-110); Anion Gap 13 mmol/L (10-20); BUN (Urea Nitrogen) 5 mg/dL (7.0-18.7); Bilirubin, Total 0.4 mg/dL (0.2-1.2); Calc. Creatinine Clearance 0 mL/min (70-130); Calcium 8.6 mg/dL (7.8-10.44); Carbon Dioxide 18 mmol/L (22-29); Chloride 108 mmol/L (98-107); Estimated GFR 118; Globulin 3.3 g/dL (2.4-3.5); Glucose 88 mg/dL (70-105); Potassium 3.7 mmol/L (3.5-5.1); Protein, Total 6.6 g/dL (6.0-8.3); Sodium 135 mmol/L (136-145)
[2022-11-02 00:27] LABS: Bacteria/HPF None Seen HPF (None Seen); Bilirubin Negative (Negative); Blood, Urine Negative (Negative); CAUTI Indications for Culture Pregnancy; Clarity Clear (Clear); Glucose, Urine (Dipstick) Normal (Negative); Ketone, Urine Negative (Negative); Leukocyte Negative Leu/uL (Negative); Nitrite Negative (Negative); Protein, Urine (Dipstick) 30 mg/dL (Neg-Trace); RBC/HPF 0-3 HPF (0-3); Specific Gravity, Urine 1.023 (1.002-1.036); Squamous Epithelial 0-3 HPF (0-3); WBC/HPF 0-3 HPF (0-3)
[2022-11-02 00:57] LABS: Urine Culture Reflex Yes Yes
== END 2022-11-02 01:41 | disposition short-term general hospital (02) ==
LOC: ERS 22:34
DX: O47.03 False labor before 37 completed weeks of gestation, third trimester (principal); O13.3 Gestational [pregnancy-induced] hypertension without significant proteinuria, third trimester; Z3A.32 32 weeks gestation of pregnancy
CPT/HCPCS: 36415; 80053; 81001; 85025; 87086